=== PATIENT | male | born 1975 ===

== ENCOUNTER 2020-09-15 21:20 | Emergency (ER) | payer OTHER ==
[~2020-09-15] VITALS: Ht 172.7 cm; Wt 67.7 kg
[2020-09-15 23:50] VITALS: BP 124/79
== END 2020-09-16 00:10 | disposition home or self-care (01) ==
LOC: EMS 21:20
DX: K40.90 Unilateral inguinal hernia, without obstruction or gangrene, not specified as recurrent (principal)
CPT/HCPCS: 99283; Z7502